=== PATIENT | male | born 1960 | race Caucasian/White ===

== ENCOUNTER 2017-11-10 11:15 | Observation (INO) | payer OTHER ==
[2017-11-10 11:31] VITALS: BMI 25.6
[2017-11-10] MEDS ORDERED: Albuterol-Ipratrop 3 mg / 0.5 (3 ml) UD INH STA ×2 (12:17→15:39)
[2017-11-10 12:42] LABS: BASO % 0.3 % (0.0-2.0); HEMOGLOBIN 14.4 g/dL (12.0-18.0); LYMPH # 0.9 K/uL (1.0-4.3); LYMPH % 11.6 % (20.0-40.0); MEAN CELL VOLUME 87.4 fL (80.0-94.0); MEAN CORPUSCULAR HEMOGLOBIN 30.4 pg (27.0-31.0); MEAN CORPUSCULAR HGB CONC 34.7 g/dL (33.0-37.0); MEAN PLATELET VOLUME 8.5 fL (7.2-11.7); MONO # 0.9 K/uL (0.0-0.8); MONO % 11.6 % (0.0-10.0); NEUT # 5.7 K/uL (1.8-7.0); NEUT % 76.5 % (50.0-75.0); NRBC % 0.1 % (0.0-2.0); RBC 4.73 Mil/uL (4.40-5.90); RED CELL DISTRIBUTION WIDTH 14.2 % (11.5-14.5); WHITE BLOOD COUNT 7.4 K/uL (4.8-10.8)
--- NOTE | 2017-11-10 12:47 | C.PDOC ---
History Of Present Illness 57 y/o male with history of DM and a frequent ETOH drinker brought to ED by neighbor with complaints of cough, weakness, body aches and decreased appetite "for couple of days". Patient was seen by PMD yesterday and given Ibuprofen and zithromax with no improvement which prompted visit today. Patient denies fever, chills, chest pain, nausea or any other complaints at this time. Time Seen by Provider: 11/10/17 11:41 Chief Complaint (Nursing): Shortness Of Breath History Per: Patient History/Exam Limitations: no limitations Onset/Duration Of Symptoms: Days Current Symptoms Are (Timing): Still Present Past Medical History Reviewed: Historical Data, Nursing Documentation, Vital Signs Vital Signs: Last Vital Signs Temp 98.9 F 11/10/17 15:13 Pulse 95 H 11/10/17 15:13 Resp 22 11/10/17 15:13 BP 184/83 H 11/10/17 15:13 Pulse Ox 97 11/10/17 16:39 - Medical History PMH: Diabetes, HTN Surgical History: No Surg Hx Family History: States: No Known Family Hx - Social History Hx Alcohol Use: Yes Hx Substance Use: No - Immunization History Hx Tetanus Toxoid Vaccination: No Hx Influenza Vaccination: No Hx Pneumococcal Vaccination: No Review Of Systems Constitutional: Negative for: Fever, Chills Respiratory: Positive for: Cough. Negative for: Shortness of Breath Gastrointestinal: Negative for: Nausea, Vomiting Neurological: Positive for: Weakness. Negative for: Numbness Physical Exam - Physical Exam Appears: Non-toxic, Other (unwell) Skin: Warm, Dry, No Rash Head: Atraumatic, Normacephalic Eye(s): bilateral: Normal Inspection (No nystagmus) Oral Mucosa: Dry Neck: Normal ROM, Supple Cardiovascular: Rhythm Regular Respiratory: Decreased Breath Sounds, No Rales, Rhonchi (scattered), No Wheezing Gastrointestinal/Abdominal: Soft, No Tenderness, No Guarding, No Rebound Extremity: No Pedal Edema, Other (Mild tremors to hands) Neurological/Psych: Oriented x3, Normal Speech, Normal Cranial Nerves, Normal Motor, Normal Sensation ED Course And Treatment - Laboratory Results Result Diagrams: 11/10/17 12:38 11/10/17 12:38 O2 Sat by Pulse Oximetry: 97 (RA) Pulse Ox Interpretation: Normal - Radiology CXR: Read By Radiologist (Chronic appearing interstitial markings.) Medical Decision Making Medical Decision Making: pt with normal labs, no acute findings on cxr, feeling better after neb tx, will d/c with albuterol. 340 pm pt remain with high blood pressure, 02 sat now 90-[address] Land pageged (covers for Dr Carlin inpt) [address] Snow, will admit to her service Disposition Counseled Patient/Family Regarding: Studies Performed, Diagnosis, Need For Followup, Rx Given - Disposition Referrals: [facility] [Outside] Disposition: HOSPITALIZED Disposition Time: 15:06 Condition: FAIR Prescriptions: Albuterol HFA [Ventolin HFA 90 mcg/actuation (8 g)] 2 puff IH Q6 #1 inhaler Instructions: Upper Respiratory Infection (ED) Forms: [facility] (Tunisian), General Discharge Instructions - Clinical Impression Clinical Impression: Bronchitis, Dyspnea, Hypoxia - PA / DRAWING TENDER / Resident Statement MD/DO has reviewed & agrees with the documentation as recorded. - Scribe Statement The provider has reviewed the documentation as recorded by the Scribwilmar Roach All medical record entries made by the Yuniibwilmar were at my direction and personally dictated by me. I have reviewed the chart and agree that the record accurately reflects my personal performance of the history, physical exam, medical decision making, and the department course for this patient. I have also personally directed, reviewed, and agree with the discharge instructions and disposition.
[2017-11-10] MEDS ORDERED: Albuterol-Ipratrop 3 mg / 0.5 (3 ml) UD ONE ×2 (12:56→15:46)
[2017-11-10 12:57] LABS: ALB/GLOB RATIO 1.1 (1.0-2.1); ALBUMIN 4.1 g/dL (3.5-5.0); ALT/SGPT 37 U/L (21-72); AST/SGOT 46 U/L (17-59); BLOOD UREA NITROGEN 25 mg/dL (9-20); CALCIUM 9.3 mg/dl (8.6-10.4); GFR AFRICAN-AMERICAN > 60; GFR NON-AFRICAN AMERICAN 57
--- NOTE | 2017-11-10 13:22 | C.PDOC ---
Time Seen by Provider: 11/10/17 11:41 Chief Complaint (Nursing): Shortness Of Breath Past Medical History Vital Signs: Last Vital Signs Temp 98.8 F 11/10/17 11:31 Pulse 97 H 11/10/17 11:31 Resp 32 H 11/10/17 11:31 BP 205/96 H 11/10/17 11:31 Pulse Ox 97 11/10/17 11:31 - Medical History PMH: HTN - Social History Hx Alcohol Use: Yes Hx Substance Use: No - Immunization History Hx Tetanus Toxoid Vaccination: No Hx Influenza Vaccination: No Hx Pneumococcal Vaccination: No ED Course And Treatment O2 Sat by Pulse Oximetry: 97 Disposition - Disposition Forms: [employer] (South Korean)
--- NOTE | 2017-11-10 13:32 | RAD ---
HISTORY: Pneumonia COMPARISON: None available. TECHNIQUE: Chest PA and lateral FINDINGS: LUNGS: Chronic appearing interstitial markings. No focal consolidation. Please note that chest x-ray has limited sensitivity for the detection of pulmonary masses. PLEURA: No significant pleural effusion identified. No definite pneumothorax . CARDIOVASCULAR: The cardiomediastinal silhouette appears within normal limits of size. OSSEOUS STRUCTURES: No acute osseous abnormality identified. VISUALIZED UPPER ABDOMEN: Unremarkable. OTHER FINDINGS: None. IMPRESSION: Chronic appearing interstitial markings.
[2017-11-10] MEDS ORDERED: MethylPREDNISolone 40 mg Vial IVP STA (16:36)
--- NOTE | 2017-11-10 18:18 | CP.PCM.HP ---
<ScoutOrly De DiosBrittany - Last Filed: 11/11/17 18:53> History of Present Illness - History of Present Illness History of Present Illness: cc: cough, weakness, dizziness HPI: Patient is a 57 y.o. male with PMHx of HTN, and DM who was brought to the ED by his friends with complaints of cough, generalized weakness, and dizziness. Patient states that on 11/07 he started having cough which slowly progressed. He visited his PMD on 11/08 who started him on Azithromycin 250 mg daily. Patient states that his symptoms worsened and today in the morning he felt very dizzy, and weakness, with muscle aches which prompted his visit to ED. He states that he is producing yellow sputum, but denies any blood in sputum. Patient also complaints of fatigue, and decreased appetite for last 4-5 days. He reports of fevers, and headaches along with muscle ache. Patient denies any chest pain, palpitations, abdominal pain, nausea, vomiting, diarrhea , constipation, urinary symptoms, or visual or auditory hallucinations. PMD: Dr. Evens Carlin PMHx: HTN, DM PSHx: denies Medications: Metformin 1000 mg po bid, Lisinopril 20 mg po bid, glipizide 10 mg po bid, Azithromycin 250 mg daily (5 day course starting 11/08) Allergies: Denies Fam Hx: mother had DM and HTN; father had HTN Social Hx: Smokes 1/2 pack per day for 15 years. Chews tobacco daily for 15 years. Drinks 8 oz. liquor every day for 15 years. Lives with roommates. Does not currently work. Present on Admission - Present on Admission Any Indicators Present on Admission: No Review of Systems - Constitutional Constitutional: Chills, Fever, Night Sweats, Weakness. absent: Increased Appetite (deacreased appeitie ) - Cardiovascular Cardiovascular: absent: Chest Pain, Palpitations - Respiratory Respiratory: Cough - Gastrointestinal Gastrointestinal: absent: Constipation, Diarrhea, Nausea, Vomiting - Musculoskeletal Musculoskeletal: Myalgias - Neurological Neurological: Dizziness Past Patient History - Past Social History Smoking Status: Heavy Smoker > 10 Cigarettes Daily - CARDIAC Hx Hypertension: Yes - ENDOCRINE/METABOLIC Hx Endocrine Disorders: Yes Hx Diabetes Mellitus Type 2: Yes - PSYCHIATRIC Hx Substance Use: No - SURGICAL HISTORY Hx Surgeries: No - ANESTHESIA Hx Anesthesia: No Meds Home Medications: Home Medication List Medication Instructions Recorded Confirmed Type Albuterol HFA [Ventolin HFA 90 2 puff IH Q6 #1 inhaler 11/10/17 Rx mcg/actuation (8 g)] Azithromycin [Zithromax] 250 mg PO DAILY 3 Days #0 11/12/17 11/10/17 Rx Oseltamivir [Tamiflu Cap] 75 mg PO BID #5 cap 11/12/17 Rx Allergies/Adverse Reactions: Allergies Allergy/AdvReac Type Severity Reaction Status Date / Time No Known Allergies Allergy Verified 11/10/17 11:27 Physical Exam - Constitutional Appears: Toxic - Head Exam Head Exam: ATRAUMATIC, NORMAL INSPECTION - Eye Exam Eye Exam: EOMI, Normal appearance - ENT Exam ENT Exam: Mucous Membranes Moist - Respiratory Exam Respiratory Exam: Decreased Breath Sounds, NORMAL BREATHING PATTERN - Cardiovascular Exam Cardiovascular Exam: REGULAR RHYTHM, +S1, +S2 - GI/Abdominal Exam GI & Abdominal Exam: Normal Bowel Sounds, Soft. absent: Tenderness - Extremities Exam Extremities exam: Positive for: normal inspection - Neurological Exam Neurological exam: Alert, Oriented x3 - Psychiatric Exam Psychiatric exam: Normal Affect, Normal Mood - Skin Skin Exam: Dry, Normal Color, Warm Results - Vital Signs Recent Vital Signs: Last Vital Signs Temp 101.2 F H 11/10/17 17:44 Pulse 103 H 11/10/17 17:44 Resp 19 11/10/17 17:44 BP 199/96 H 11/10/17 17:44 Pulse Ox 95 11/10/17 17:44 - Labs Result Diagrams: 11/11/17 07:12 11/11/17 07:12 Labs: Laboratory Results - last 24 hr 11/10/17 11/10/17 11/10/17 11:52 12:38 12:38 WBC 7.4 RBC 4.73 Hgb 14.4 Hct 41.4 MCV 87.4 MCH 30.4 MCHC 34.7 RDW 14.2 Plt Count 206 MPV 8.5 Neut % (Auto) 76.5 H Lymph % (Auto) 11.6 L [place] % (Auto) 11.6 H Eos % (Auto) 0.0 Baso % (Auto) 0.3 Neut # 5.7 Lymph # 0.9 L [place] # 0.9 H Eos # 0.0 Baso # 0.0 Sodium 134 Potassium 4.1 Chloride 95 L Carbon Dioxide 26 Anion Gap 17 BUN 25 H Creatinine 1.3 Est GFR ( Amer) > 60 Est GFR (Non-Af Amer) 57 Random Glucose 158 H Calcium 9.3 Total Bilirubin 0.9 AST 46 ALT 37 Alkaline Phosphatase 69 Total Protein 8.0 Albumin 4.1 Globulin 3.8 Albumin/Globulin Ratio 1.1 Alcohol, Quantitative < 10 Influenza Typ A,B (EIA) Negative for flu a/b Assessment & Plan - Assessment and Plan (Free Text) Assessment: 1.) Shortness of Breath - Chest X-ray: - Medications * Tamiflu 75mg bid started 11/10 * Azithromycin 500mg started 11/10 * Duonebs * Acetaminophen * LR @ 100cc/hr - f/u strep pneumo, f/u urine culture - Leigonela, mycoplasm, group a strep --> negative - Influenza negative - blood culture negative - UA negative 2.) History of HTN - Hydralazine 25mg po qid PRN - Lisinopril 20mg po bid 3.) History of DM - Accuchecks - ISS - f/u A1c 4.) Smoking Cessation - Education - Nicotine patch 5.) Prophylaxis - Heparin SC - Protonix 40mg po daily <Leeroy Snow - Last Filed: 11/12/17 17:58> Results - Vital Signs Recent Vital Signs: Last Vital Signs Temp 98.4 F 11/12/17 13:00 Pulse 82 11/12/17 13:00 Resp 22 11/12/17 13:00 BP 154/83 H 11/12/17 13:00 Pulse Ox 93 L 11/12/17 13:00 - Labs Result Diagrams: 11/12/17 07:23 11/12/17 07:23 Labs: Laboratory Results - last 24 hr 11/11/17 11/12/17 11/12/17 21:31 07:18 07:23 WBC RBC Hgb Hct MCV MCH MCHC RDW Plt Count MPV Neut % (Auto) Lymph % (Auto) [place] % (Auto) Eos % (Auto) Baso % (Auto) Neut # Lymph # [place] # Eos # Baso # Neutrophils % (Manual) Band Neutrophils % Lymphocytes % (Manual) Monocytes % (Manual) Platelet Estimate RBC Morphology Sodium 130 L Potassium 4.2 Chloride 94 L Carbon Dioxide 26 Anion Gap 14 BUN 23 H Creatinine 0.9 Est GFR ( Amer) > 60 Est GFR (Non-Af Amer) > 60 POC Glucose (mg/dL) 291 H 297 H Random Glucose 339 H Calcium 8.9 Phosphorus 2.9 Magnesium 1.9 Total Bilirubin 0.6 AST 41 ALT 47 Alkaline Phosphatase 66 Total Protein 6.8 Albumin 3.5 Globulin 3.3 Albumin/Globulin Ratio 1.1 11/12/17 11/12/17 07:23 11:31 WBC 9.8 RBC 4.19 L Hgb 12.4 Hct 36.5 MCV 87.1 MCH 29.6 MCHC 34.0 RDW 14.0 Plt Count 237 MPV 9.7 Neut % (Auto) 79.4 H Lymph % (Auto) 8.6 L [place] % (Auto) 11.6 H Eos % (Auto) 0.0 Baso % (Auto) 0.4 Neut # 7.8 H Lymph # 0.8 L [place] # 1.1 H Eos # 0.0 Baso # 0.0 Neutrophils % (Manual) 76 H Band Neutrophils % 2 Lymphocytes % (Manual) 14 L Monocytes % (Manual) 8 Platelet Estimate Normal RBC Morphology Normal Sodium Potassium Chloride Carbon Dioxide Anion Gap BUN Creatinine Est GFR ( Amer) Est GFR (Non-Af Amer) POC Glucose (mg/dL) 227 H Random Glucose Calcium Phosphorus Magnesium Total Bilirubin AST ALT Alkaline Phosphatase Total Protein Albumin Globulin Albumin/Globulin Ratio Attending/Attestation - Attestation I have personally seen and examined this patient.: Yes I have fully participated in the care of the patient.: Yes I have reviewed all pertinent clinical information: Yes Notes (Text): Patient was seen and examined cough,fever,dyspnea and hypoxia 1.Fever 2.Lower respiratory tract infection 3.DM 4.HTM 5.Hyppoxia plan discussed with the resident i agree with the documentation of the assessment and the plan
[2017-11-10] MEDS: Lactated Ringer's 1,000 ML IV SCH (18:56)
[2017-11-10] MEDS: (Novolin R) Insulin Human Regular 100 units/ml vial SC SCH (21:24)
[2017-11-10 23:26] LABS: SQUAMOUS EPITHIAL < 1 /hpf (0-5); URINE BACTERIA RARE (<OCC); URINE BILIRUBIN NEGATIVE (NEGATIVE); URINE CLARITY Hazy (Clear); URINE COLOR Yellow (YELLOW); URINE GLUCOSE (UA) 2+ mg/dL (Normal); URINE NITRATE NEGATIVE (NEGATIVE); URINE PROTEIN 2+ mg/dL (NEGATIVE); URINE UROBILINOGEN NORMAL mg/dL (0.2-1.0)
[2017-11-10 23:27] LABS: URINE BLOOD 1+ (NEGATIVE); URINE LEUKOCYTE ESTERASE 1+ Leu/uL (Negative)
[2017-11-11] MEDS: Albuterol-Ipratrop 3 mg / 0.5 (3 ml) UD INH SCH ×4 (01:56→19:24)
[2017-11-11] MEDS: Lactated Ringer's 1,000 ML IV SCH ×3 (05:43→16:50)
[2017-11-11 07:53] LABS: BASO % 0.1 % (0.0-2.0); EOS % 0.1 % (0.0-4.0); HEMOGLOBIN 12.6 g/dL (12.0-18.0); LYMPH # 0.6 K/uL (1.0-4.3); LYMPH % 8.3 % (20.0-40.0); MEAN CELL VOLUME 86.5 fL (80.0-94.0); MEAN CORPUSCULAR HEMOGLOBIN 30.3 pg (27.0-31.0); MEAN PLATELET VOLUME 9.7 fL (7.2-11.7); MONO # 0.7 K/uL (0.0-0.8); NEUT % 82.5 % (50.0-75.0); NRBC % 0.1 % (0.0-2.0); PLATELET COUNT 195 K/uL (130-400); RBC 4.15 Mil/uL (4.40-5.90); RED CELL DISTRIBUTION WIDTH 14.1 % (11.5-14.5); WHITE BLOOD COUNT 7.3 K/uL (4.8-10.8)
[2017-11-11] MEDS: (Novolin R) Insulin Human Regular 100 units/ml vial SC SCH ×4 (08:13→21:51)
[2017-11-11 08:31] LABS: ALB/GLOB RATIO 1.2 (1.0-2.1); ALBUMIN 3.6 g/dL (3.5-5.0); ALT/SGPT 32 U/L (21-72); AST/SGOT 32 U/L (17-59); BLOOD UREA NITROGEN 25 mg/dL (9-20); CALCIUM 8.8 mg/dl (8.6-10.4); GFR AFRICAN-AMERICAN > 60; GFR NON-AFRICAN AMERICAN > 60
[2017-11-11] MEDS ORDERED: Influenza Vaccine 60 mcg/0.5 mL SYR (4YR UP) IM ONE (10:00)
[2017-11-11] MEDS ORDERED: Pneumococcal 23-Valent Vaccine IM ONE (10:00)
[2017-11-11 10:02] LABS: ANISOCYTOSIS SLIGHT; BANDS 7 % (0-2); LARGE PLATELETS PRESENT; LYMPHOCYTE 7 % (20-40); MONOCYTE 11 % (0-10); NEUTROPHIL 75 % (50-75); PLATELET ESTIMATE NORMAL (NORMAL); TOTAL CELLS COUNTED 100
[2017-11-11 10:03] LABS: HYPOCHROMIC SLIGHT; POLYCHROMIC SLIGHT; TOXIC GRANULATION PRESENT
[2017-11-11] MEDS: Pantoprazole 40 mg EC Tab PO SCH (10:57)
[2017-11-11] MEDS: MethylPREDNISolone 40 mg Vial IVP SCH ×2 (10:58→17:29)
[2017-11-11 13:24] LABS: LEGIONELLA AG URINE NEGATIVE (NEGATIVE)
--- NOTE | 2017-11-11 18:53 | CP.PCM.PN ---
<Orly Butterfield - Last Filed: 11/11/17 18:58> Subjective - Date & Time of Evaluation Date of Evaluation: 11/11/17 Time of Evaluation: 07:00 - Subjective Subjective: Medicine Progress Note: Patient seen and examined at bedside today in the AM. Patient states that he is feeling much better than yesterday. Patient still complaints of cough, but states that he is not producing phlegm anymore. Patient reports that his SOB, muscle aches, and weakness have improved greatly. Patient able to tolerate regular diet now. Patient denies headaches, chest pain, abdominal pain, vomiting , nausea, diarrhea, and constipation. Objective - Vital Signs/Intake and Output Vital Signs (last 24 hours): Temp Pulse Resp BP Pulse Ox 97.9 F 76 20 159/85 H 95 11/11/17 16:00 11/11/17 16:00 11/11/17 16:00 11/11/17 16:00 11/11/17 16:00 Intake and Output: 11/11/17 11/11/17 06:59 18:59 Intake Total 980 100 Balance 980 100 - Medications Medications: Current Medications Acetaminophen (Tylenol 325mg Tab) 650 mg PO Q6 PRN PRN Reason: Fever >100.4 F Albuterol/Ipratropium (Duoneb 3 Mg/0.5 Mg (3 Ml) Ud) 3 ml INH RQ6 [facility] Last Admin: 11/11/17 13:57 Dose: 3 ml Heparin Sodium (Porcine) (Heparin) 5,000 units SC Q8 [facility] Last Admin: 11/11/17 14:29 Dose: 5,000 units Hydralazine HCl (Apresoline) 25 mg PO QID PRN PRN Reason: Systolic Blood Pressure Last Admin: 11/11/17 14:29 Dose: 25 mg Lactated Ringer's (Lactated Ringer's) 1,000 mls @ 100 mls/hr IV .Q10H [facility] Last Admin: 11/11/17 16:50 Dose: 100 mls/hr Azithromycin 500 mg/ Dextrose 250 mls @ 167 mls/hr IVPB Q24H [facility] Last Admin: 11/11/17 18:21 Dose: 167 mls/hr Insulin Human Regular (Novolin R) 0 unit SC ACHS GOPAL PRN Reason: Protocol Last Admin: 11/11/17 17:26 Dose: 3 unit Lisinopril (Zestril) 20 mg PO BID [facility] Last Admin: 11/11/17 17:30 Dose: 20 mg Methylprednisolone (Solu-Medrol) 40 mg IVP BID [facility] Last Admin: 11/11/17 17:29 Dose: 40 mg Nicotine (Nicoderm Cq) 1 patch TD DAILY [facility] Last Admin: 11/11/17 10:58 Dose: 1 patch Oseltamivir Phosphate (Tamiflu Cap) 75 mg PO BID [facility] Stop: 11/15/17 18:16 Last Admin: 11/11/17 17:30 Dose: 75 mg Pantoprazole Sodium (Protonix Ec Tab) 40 mg PO DAILY [facility] Last Admin: 11/11/17 10:57 Dose: 40 mg - Labs Labs: 11/11/17 07:12 11/11/17 07:12 - Constitutional Appears: No Acute Distress - Head Exam Head Exam: ATRAUMATIC, NORMAL INSPECTION - Eye Exam Eye Exam: EOMI, Normal appearance - ENT Exam ENT Exam: Mucous Membranes Moist - Respiratory Exam Respiratory Exam: Clear to Ausculation Bilateral, NORMAL BREATHING PATTERN - Cardiovascular Exam Cardiovascular Exam: REGULAR RHYTHM, +S1, +S2 - GI/Abdominal Exam GI & Abdominal Exam: Soft, Normal Bowel Sounds. absent: Tenderness - Extremities Exam Extremities Exam: Normal Inspection - Neurological Exam Neurological Exam: Alert, Awake, Oriented x3 - Psychiatric Exam Psychiatric exam: Normal Affect, Normal Mood - Skin Skin Exam: Normal Color, Warm Assessment and Plan - Assessment and Plan (Free Text) Assessment: 1.) Shortness of Breath - Chest X-ray: Chronic appearing interstitial markings - Medications * Tamiflu 75mg bid started 11/10 * Azithromycin 500mg started 11/10 * Duonebs * Acetaminophen - f/u strep pneumo, f/u urine culture - Leigonela, mycoplasm, group a strep --> negative - Influenza negative - blood culture negative - UA negative 2.) History of HTN - Hydralazine 25mg po qid PRN - Lisinopril 20mg po bid 3.) History of DM - Accuchecks - ISS - f/u A1c 4.) Smoking Cessation - Education - Nicotine patch 5.) Prophylaxis - Heparin SC - Protonix 40mg po daily Disposition: Possible discharge home 11/12/[address] Gwendolyn Butterfield PGY-1 <Leeroy Snow - Last Filed: 11/12/17 18:01> Objective - Vital Signs/Intake and Output Vital Signs (last 24 hours): Temp Pulse Resp BP Pulse Ox 98.4 F 82 22 154/83 H 93 L 11/12/17 13:00 11/12/17 13:00 11/12/17 13:00 11/12/17 13:00 11/12/17 13:00 Intake and Output: 11/12/17 11/12/17 06:59 18:59 Intake Total 700 Output Total 850 Balance -150 - Labs Labs: 11/12/17 07:23 11/12/17 07:23 Attending/Attestation - Attestation I have personally seen and examined this patient.: Yes I have fully participated in the care of the patient.: Yes I have reviewed all pertinent clinical information, including history, physical exam and plan: Yes Notes (Text): seen and examined has cough,breathing better,fever improving started on Tamiflu/likely influenza/pt looks sick with body aches and pain continue tamiflu and antibiotics,follow cultures I agree with documenation of the assessment and the plan 11/12/17 17:59
[2017-11-12] MEDS: Albuterol-Ipratrop 3 mg / 0.5 (3 ml) UD INH SCH ×3 (02:01→13:17)
[2017-11-12] MEDS ORDERED: guaiFENesin 100 mg/5 ml Syrup UD PO ONE (03:30)
[2017-11-12 07:35] LABS: BASO % 0.4 % (0.0-2.0); HEMOGLOBIN 12.4 g/dL (12.0-18.0); LYMPH # 0.8 K/uL (1.0-4.3); LYMPH % 8.6 % (20.0-40.0); MEAN CELL VOLUME 87.1 fL (80.0-94.0); MEAN CORPUSCULAR HEMOGLOBIN 29.6 pg (27.0-31.0); MEAN PLATELET VOLUME 9.7 fL (7.2-11.7); MONO # 1.1 K/uL (0.0-0.8); MONO % 11.6 % (0.0-10.0); NEUT # 7.8 K/uL (1.8-7.0); NEUT % 79.4 % (50.0-75.0); PLATELET COUNT 237 K/uL (130-400); RBC 4.19 Mil/uL (4.40-5.90); WHITE BLOOD COUNT 9.8 K/uL (4.8-10.8)
[2017-11-12 08:17] LABS: ALB/GLOB RATIO 1.1 (1.0-2.1); ALBUMIN 3.5 g/dL (3.5-5.0); ALT/SGPT 47 U/L (21-72); AST/SGOT 41 U/L (17-59); BLOOD UREA NITROGEN 23 mg/dL (9-20); CALCIUM 8.9 mg/dl (8.6-10.4); GFR AFRICAN-AMERICAN > 60; GFR NON-AFRICAN AMERICAN > 60; MAGNESIUM 1.9 mg/dL (1.6-2.3)
[2017-11-12] MEDS: (Novolin R) Insulin Human Regular 100 units/ml vial SC SCH ×2 (08:21→12:02)
--- NOTE | 2017-11-12 10:14 | CP.PCM.DIS ---
<Leeroy Snow - Last Filed: 11/12/17 18:02> Provider - Provider Date of Admission: 11/10/17 16:37 Attending physician: Leeroy Snow MD Hospital Course - Lab Results Lab Results: Micro Results 11/10/17 12:15 Blood Blood Culture - Preliminary NO GROWTH AFTER 48 HOURS 11/10/17 12:15 Blood Blood Culture - Preliminary NO GROWTH AFTER 48 HOURS 11/10/17 22:45 Urine Urine Culture - Final <10,000CFU/ML 11/10/17 23:25 Throat Group A Strep Throat Culture - Final NO BETA STREP GROUP A ISOLATED. Most Recent Lab Values WBC 9.8 K/uL (4.8-10.8) 11/12/17 07:23 RBC 4.19 Mil/uL (4.40-5.90) L 11/12/17 07:23 Hgb 12.4 g/dL (12.0-18.0) 11/12/17 07:23 Hct 36.5 % (35.0-51.0) 11/12/17 07:23 MCV 87.1 fL (80.0-94.0) 11/12/17 07:23 MCH 29.6 pg (27.0-31.0) 11/12/17 07:23 MCHC 34.0 g/dL (33.0-37.0) 11/12/17 07:23 RDW 14.0 % (11.5-14.5) 11/12/17 07:23 Plt Count 237 K/uL (130-400) 11/12/17 07:23 MPV 9.7 fL (7.2-11.7) 11/12/17 07:23 Neut % (Auto) 79.4 % (50.0-75.0) H 11/12/17 07:23 Lymph % (Auto) 8.6 % (20.0-40.0) L 11/12/17 07:23 [place] % (Auto) 11.6 % (0.0-10.0) H 11/12/17 07:23 Eos % (Auto) 0.0 % (0.0-4.0) 11/12/17 07:23 Baso % (Auto) 0.4 % (0.0-2.0) 11/12/17 07:23 Neut # 7.8 K/uL (1.8-7.0) H 11/12/17 07:23 Lymph # 0.8 K/uL (1.0-4.3) L 11/12/17 07:23 Geary # 1.1 K/uL (0.0-0.8) H 11/12/17 07:23 Eos # 0.0 K/uL (0.0-0.7) 11/12/17 07:23 Baso # 0.0 K/uL (0.0-0.2) 11/12/17 07:23 Neutrophils % (Manual) 76 % (50-75) H 11/12/17 07:23 Band Neutrophils % 2 % (0-2) 11/12/17 07:23 Lymphocytes % (Manual) 14 % (20-40) L 11/12/17 07:23 Monocytes % (Manual) 8 % (0-10) 11/12/17 07:23 Toxic Granulation Present 11/11/17 07:12 Platelet Estimate Normal (NORMAL) 11/12/17 07:23 Large Platelets Present 11/11/17 07:12 RBC Morphology Normal 11/12/17 07:23 Polychromasia Slight 11/11/17 07:12 Hypochromasia (manual) Slight 11/11/17 07:12 Anisocytosis (manual) Slight 11/11/17 07:12 Sodium 130 mmol/L (132-148) L 11/12/17 07:23 Potassium 4.2 mmol/L (3.6-5.2) 11/12/17 07:23 Chloride 94 mmol/L (98-107) L 11/12/17 07:23 Carbon Dioxide 26 mmol/L (22-30) 11/12/17 07:23 Anion Gap 14 (10-20) 11/12/17 07:23 BUN 23 mg/dL (9-20) H 11/12/17 07:23 Creatinine 0.9 mg/dL (0.8-1.5) 11/12/17 07:23 Est GFR ( Amer) > 60 11/12/17 07:23 Est GFR (Non-Af Amer) > 60 11/12/17 07:23 POC Glucose (mg/dL) 227 mg/dL (65-110) H 11/12/17 11:31 Random Glucose 339 mg/dL (75-110) H 11/12/17 07:23 Calcium 8.9 mg/dl (8.6-10.4) 11/12/17 07:23 Phosphorus 2.9 mg/dL (2.5-4.5) 11/12/17 07:23 Magnesium 1.9 mg/dL (1.6-2.3) 11/12/17 07:23 Total Bilirubin 0.6 mg/dL (0.2-1.3) 11/12/17 07:23 AST 41 U/L (17-59) 11/12/17 07:23 ALT 47 U/L (21-72) 11/12/17 07:23 Alkaline Phosphatase 66 U/L (38-126) 11/12/17 07:23 Total Protein 6.8 g/dL (6.3-8.3) 11/12/17 07:23 Albumin 3.5 g/dL (3.5-5.0) 11/12/17 07:23 Globulin 3.3 gm/dL (2.2-3.9) 11/12/17 07:23 Albumin/Globulin Ratio 1.1 (1.0-2.1) 11/12/17 07:23 Procalcitonin 2.46 NG/ML (0.19-0.49) H 11/10/17 22:45 Urine Color Yellow (YELLOW) 11/10/17 23:18 Urine Clarity Hazy (Clear) 11/10/17 23:18 Urine pH 5.0 (5.0-8.0) 11/10/17 23:18 Ur Specific [place] 1.018 (1.003-1.030) 11/10/17 23:18 Urine Protein 2+ mg/dL (NEGATIVE) H 11/10/17 23:18 Urine Glucose (UA) 2+ mg/dL (Normal) H 11/10/17 23:18 Urine Ketones 1+ mg/dL (NEGATIVE) H 11/10/17 23:18 Urine Blood 1+ (NEGATIVE) H 11/10/17 23:18 Urine Nitrate Negative (NEGATIVE) 11/10/17 23:18 Urine Bilirubin Negative (NEGATIVE) 11/10/17 23:18 Urine Urobilinogen Normal mg/dL (0.2-1.0) 11/10/17 23:18 Ur Leukocyte Esterase 1+ Monse/uL (Negative) H 11/10/17 23:18 Urine WBC (Auto) 8 /hpf (0-5) H 11/10/17 23:18 Urine RBC (Auto) 5 /hpf (0-3) H 11/10/17 23:18 Ur Squamous Epith Cells < 1 /hpf (0-5) 11/10/17 23:18 Ur Transition Epith Cell 1 /hpf (0-3) 11/10/17 23:18 Urine Bacteria Rare (<OCC) 11/10/17 23:18 Hyaline Casts 3-5 /lpf (0-2) H 11/10/17 23:18 Alcohol, Quantitative < 10 mg/dl (0-10) 11/10/17 12:38 Influenza Typ A,B (EIA) Negative for flu a/b (NEGATIVE) 11/10/17 11:52 Ur L.pneumophila Ag Negative (NEGATIVE) 11/10/17 23:25 Mycoplasma pneumon IgM Negative (NEGATIVE) 11/10/17 22:45 Grp A Beta Strep Ag Negative (NEGATIVE) 11/10/17 23:25 Discharge Plan - Discharge Medications Prescriptions: Albuterol HFA [Ventolin HFA 90 mcg/actuation (8 g)] 2 puff IH Q6 #1 inhaler Oseltamivir [Tamiflu Cap] 75 mg PO BID #5 cap - Follow Up Plan Condition: FAIR Disposition: HOME/ ROUTINE Instructions: Albuterol (By breathing), Azithromycin (By mouth), Oseltamivir ( By mouth), How to Stop Smoking (DC), Pneumococcal Vaccine for Adults (DC), Upper Respiratory Infection (ED), Acute Bronchitis (GEN), Pneumonia (DC) Additional Instructions: Patient stable for discharge home per Dr. Snow. Patient to continue all home medications. Patient to start new medications: Tamiflu 75mg one table twice per day for 3 more days. Azythromycin 250mg one table daily for 3 more days. Discussed with patient the importance of smoking cesseation. Discussed with patient the importance of diet and exercise. Patient to follow up with primary doctor Dr. Carlin in one week. Patient to return to the emergency room if symptoms return or worsen. Referrals: [facility] [Outside] Attending/Attestation - Attestation I have personally seen and examined this patient.: Yes I have fully participated in the care of the patient.: Yes I have reviewed all pertinent clinical information, including history, physical exam and plan: Yes Notes (Text): Seen and examined,discharge plan discussed with the patient explained to follow his primary care to monitor his sugar and blood pressure increase fluids and continue antibiotics and tamiflu 11/12/17 18:02 <Tao Butterfieldssjosé Rosario - Last Filed: 11/12/17 19:52> Provider - Provider Date of Admission: 11/10/17 16:37 Attending physician: Leeroy Snow MD Time Spent in preparation of Discharge (in minutes): 40 Hospital Course - Lab Results Lab Results: Micro Results 11/10/17 12:15 Blood Blood Culture - Preliminary NO GROWTH AFTER 24 HOURS 11/10/17 12:15 Blood Blood Culture - Preliminary NO GROWTH AFTER 24 HOURS Most Recent Lab Values WBC 9.8 K/uL (4.8-10.8) 11/12/17 07:23 RBC 4.19 Mil/uL (4.40-5.90) L 11/12/17 07:23 Hgb 12.4 g/dL (12.0-18.0) 11/12/17 07:23 Hct 36.5 % (35.0-51.0) 11/12/17 07:23 MCV 87.1 fL (80.0-94.0) 11/12/17 07:23 MCH 29.6 pg (27.0-31.0) 11/12/17 07:23 MCHC 34.0 g/dL (33.0-37.0) 11/12/17 07:23 RDW 14.0 % (11.5-14.5) 11/12/17 07:23 Plt Count 237 K/uL (130-400) 11/12/17 07:23 MPV 9.7 fL (7.2-11.7) 11/12/17 07:23 Neut % (Auto) 79.4 % (50.0-75.0) H 11/12/17 07:23 Lymph % (Auto) 8.6 % (20.0-40.0) L 11/12/17 07:23 Geary % (Auto) 11.6 % (0.0-10.0) H 11/12/17 07:23 Eos % (Auto) 0.0 % (0.0-4.0) 11/12/17 07:23 Baso % (Auto) 0.4 % (0.0-2.0) 11/12/17 07:23 Neut # 7.8 K/uL (1.8-7.0) H 11/12/17 07:23 Lymph # 0.8 K/uL (1.0-4.3) L 11/12/17 07:23 Geary # 1.1 K/uL (0.0-0.8) H 11/12/17 07:23 Eos # 0.0 K/uL (0.0-0.7) 11/12/17 07:23 Baso # 0.0 K/uL (0.0-0.2) 11/12/17 07:23 Neutrophils % (Manual) 75 % (50-75) 11/11/17 07:12 Band Neutrophils % 7 % (0-2) H 11/11/17 07:12 Lymphocytes % (Manual) 7 % (20-40) L 11/11/17 07:12 Monocytes % (Manual) 11 % (0-10) H 11/11/17 07:12 Toxic Granulation Present 11/11/17 07:12 Platelet Estimate Normal (NORMAL) 11/11/17 07:12 Large Platelets Present 11/11/17 07:12 Polychromasia Slight 11/11/17 07:12 Hypochromasia (manual) Slight 11/11/17 07:12 Anisocytosis (manual) Slight 11/11/17 07:12 Sodium 130 mmol/L (132-148) L 11/12/17 07:23 Potassium 4.2 mmol/L (3.6-5.2) 11/12/17 07:23 Chloride 94 mmol/L (98-107) L 11/12/17 07:23 Carbon Dioxide 26 mmol/L (22-30) 11/12/17 07:23 Anion Gap 14 (10-20) 11/12/17 07:23 BUN 23 mg/dL (9-20) H 11/12/17 07:23 Creatinine 0.9 mg/dL (0.8-1.5) 11/12/17 07:23 Est GFR ( Amer) > 60 11/12/17 07:23 Est GFR (Non-Af Amer) > 60 11/12/17 07:23 POC Glucose (mg/dL) 297 mg/dL (65-110) H 11/12/17 07:18 Random Glucose 339 mg/dL (75-110) H 11/12/17 07:23 Calcium 8.9 mg/dl (8.6-10.4) 11/12/17 07:23 Phosphorus 2.9 mg/dL (2.5-4.5) 11/12/17 07:23 Magnesium 1.9 mg/dL (1.6-2.3) 11/12/17 07:23 Total Bilirubin 0.6 mg/dL (0.2-1.3) 11/12/17 07:23 AST 41 U/L (17-59) 11/12/17 07:23 ALT 47 U/L (21-72) 11/12/17 07:23 Alkaline Phosphatase 66 U/L (38-126) 11/12/17 07:23 Total Protein 6.8 g/dL (6.3-8.3) 11/12/17 07:23 Albumin 3.5 g/dL (3.5-5.0) 11/12/17 07:23 Globulin 3.3 gm/dL (2.2-3.9) 11/12/17 07:23 Albumin/Globulin Ratio 1.1 (1.0-2.1) 11/12/17 07:23 Procalcitonin 2.46 NG/ML (0.19-0.49) H 11/10/17 22:45 Urine Color Yellow (YELLOW) 11/10/17 23:18 Urine Clarity Hazy (Clear) 11/10/17 23:18 Urine pH 5.0 (5.0-8.0) 11/10/17 23:18 Ur Specific [place] 1.018 (1.003-1.030) 11/10/17 23:18 Urine Protein 2+ mg/dL (NEGATIVE) H 11/10/17 23:18 Urine Glucose (UA) 2+ mg/dL (Normal) H 11/10/17 23:18 Urine Ketones 1+ mg/dL (NEGATIVE) H 11/10/17 23:18 Urine Blood 1+ (NEGATIVE) H 11/10/17 23:18 Urine Nitrate Negative (NEGATIVE) 11/10/17 23:18 Urine Bilirubin Negative (NEGATIVE) 11/10/17 23:18 Urine Urobilinogen Normal mg/dL (0.2-1.0) 11/10/17 23:18 Ur Leukocyte Esterase 1+ [place]/uL (Negative) H 11/10/17 23:18 Urine WBC (Auto) 8 /hpf (0-5) H 11/10/17 23:18 Urine RBC (Auto) 5 /hpf (0-3) H 11/10/17 23:18 Ur Squamous Epith Cells < 1 /hpf (0-5) 11/10/17 23:18 Ur Transition Epith Cell 1 /hpf (0-3) 11/10/17 23:18 Urine Bacteria Rare (<OCC) 11/10/17 23:18 Hyaline Casts 3-5 /lpf (0-2) H 11/10/17 23:18 Alcohol, Quantitative < 10 mg/dl (0-10) 11/10/17 12:38 Influenza Typ A,B (EIA) Negative for flu a/b (NEGATIVE) 11/10/17 11:52 Ur L.pneumophila Ag Negative (NEGATIVE) 11/10/17 23:25 Mycoplasma pneumon IgM Negative (NEGATIVE) 11/10/17 22:45 Grp A Beta Strep Ag Negative (NEGATIVE) 11/10/17 23:25 - Hospital Course Hospital Course: HPI: Patient is a 57 y.o. male with PMHx of HTN, and DM who was brought to the ED by his friends with complaints of cough, generalized weakness, and dizziness. Patient states that on 11/07 he started having cough which slowly progressed. He visited his PMD on 11/08 who started him on Azithromycin 250 mg daily. Patient states that his symptoms worsened and today in the morning he felt very dizzy, and weakness, with muscle aches which prompted his visit to ED. He states that he is producing yellow sputum, but denies any blood in sputum. Patient also complaints of fatigue, and decreased appetite for last 4-5 days. He reports of fevers, and headaches along with muscle ache. Patient denies any chest pain, palpitations, abdominal pain, nausea, vomiting, diarrhea , constipation, urinary symptoms, or visual or auditory hallucinations. PMD: Dr. Evens Carlin PMHx: HTN, DM PSHx: denies Medications: Metformin 1000 mg po bid, Lisinopril 20 mg po bid, glipizide 10 mg po bid, Azithromycin 250 mg daily (5 day course starting 11/08) Allergies: Denies Fam Hx: mother had DM and HTN; father had HTN Social Hx: Smokes 1/2 pack per day for 15 years. Chews tobacco daily for 15 years. Drinks 8 oz. liquor every day for 15 years. Lives with roommates. Does not currently work. Hospital Course: During patient's hospital stay he was treated for influenza and pneumonia. Patient was started on Tamiflu 75mg bid and Azithromycin 500mg . Although patient's influenza lab value was negative patient was clinically symptomatic. Due to patient's shortness of breath patient was also given duoneb treatments. Chest X-ray: Chronic appearing interstitial markings. Patient's blood, urine, and throat cultures were negative. Leigonela, mycoplasm, group a strep were all negative. Also continued patient's home medications of hypertension and diabetes. Also discussed with patient the importance of smoking cessation. Patient seen and examined at bedside today in the AM. Patient states that he is feeling much better today. Patient able to tolerate regular diet now. Patient denies headaches, chest pain, abdominal pain, vomiting, nausea, diarrhea, and constipation. Patient stable for discharge home per Dr. Snow. Patient to continue all home medications. Patient to start new medications: Tamiflu 75mg one table twice per day for 3 more days. Azythromycin 250mg one table daily for 3 more days. Discussed with patient the importance of smoking cessation. Discussed with patient the importance of diet and exercise. Patient to follow up with primary doctor Dr. Carlin in one week. Patient to return to the emergency room if symptoms return or worsen. This is a summary of patient's hospital course, please see chart for full details. Discharge Exam - Head Exam Head Exam: ATRAUMATIC, NORMAL INSPECTION - Eye Exam Eye Exam: EOMI, Normal appearance - ENT Exam ENT Exam: Mucous Membranes Moist - Respiratory Exam Respiratory Exam: Clear to PA & Lateral, NORMAL BREATHING PATTERN - Cardiovascular Exam Cardiovascular Exam: REGULAR RHYTHM, +S1, +S2 - GI/Abdominal Exam GI & Abdominal Exam: Normal Bowel Sounds, Soft. absent: Tenderness - Extremities Exam Extremities exam: normal inspection - Neurological Exam Neurological exam: Alert, Oriented x3 - Psychiatric Exam Psychiatric exam: Normal Affect, Normal Mood - Skin Skin Exam: Normal Color, Warm
[2017-11-12 10:30] LABS: BANDS 2 % (0-2); LYMPHOCYTE 14 % (20-40); MONOCYTE 8 % (0-10); NEUTROPHIL 76 % (50-75); PLATELET ESTIMATE NORMAL (NORMAL); TOTAL CELLS COUNTED 100
[2017-11-12] MEDS: MethylPREDNISolone 40 mg Vial IVP SCH (10:34)
[2017-11-12] MEDS: Pantoprazole 40 mg EC Tab PO SCH (10:34)
[2017-11-12 13:50] VITALS: BP 154/83; PULSE 82; RESP 22; TEMP 98.4; O2SAT 93
== END 2017-11-12 13:46 | disposition home or self-care (01) ==
LOC: C.ER 11:15 → C.9E 16:37 → C.3T 18:59
PROVIDERS: ADMIT Internal Medicine; ATTEND Internal Medicine
DX: J11.00 Influenza due to unidentified influenza virus with unspecified type of pneumonia (principal); F17.210 Nicotine dependence, cigarettes, uncomplicated; F17.220 Nicotine dependence, chewing tobacco, uncomplicated; I10 Essential (primary) hypertension; E11.9 Type 2 diabetes mellitus without complications; Z83.3 Family history of diabetes mellitus; Z82.49 Family history of ischemic heart disease and other diseases of the circulatory system; Z79.84 Long term (current) use of oral hypoglycemic drugs; Z79.899 Other long term (current) drug therapy; R09.02 Hypoxemia
CPT/HCPCS: 36415; 71046; 80053; 80320; 81001; 82948; 83036; 83735; 84100; 84145; 85025; 86738; 87040; 87070; 87086; 87430; 87449; 87804; 87899; 94640; 96361; 96365; 96366; 96367; 96372; 96375; 96376; 99285; G0378; J0456; J0696; J1644; J2920; J7060; J7120